=== PATIENT | female | born 1950 | race Caucasian/White ===

== ENCOUNTER 2017-04-20 08:44 | Outpatient (CLI) | END 2017-04-20 08:45 | disposition short-term general hospital (02) | LOC: AMBL 08:44 | PROVIDERS: ATTEND Emergency Medicine | DX: R56.9 Unspecified convulsions (principal); I63.9 Cerebral infarction, unspecified; G81.91 Hemiplegia, unspecified affecting right dominant side; R47.02 Dysphasia; I10 Essential (primary) hypertension; E11.9 Type 2 diabetes mellitus without complications ==